=== PATIENT | male | born 1990 | race Caucasian/White ===

== ENCOUNTER 2018-04-08 11:41 | Inpatient (IN) | payer MEDICAID ==
[~2018-04-08] VITALS: Ht 172.7 cm; Wt 69.9 kg
[~2018-04-08 11:41] MED LIST: DIVA500T4 PO; QUET150T2
[2018-04-08] MEDS ORDERED: SODIUM CHLORIDE 0.9% 1,000 ML IVB ONE (11:49)
[2018-04-08] MEDS ORDERED: KETOROLAC TROMETH 30 MG/ML 1ML VIAL IV ONE (12:00)
[2018-04-08] MEDS ORDERED: MORPHINE SULFATE 4 MG/ML SYR/VIAL IV ONE (12:00)
[2018-04-08] MEDS ORDERED: ONDANSETRON HCL 4 MG/2 ML VIAL IV ONE (12:00)
[2018-04-08 13:11] LABS: Albumin 4.5 g/dL (3.4-5.0); BUN/Creatinine Ratio 22.2; Calcium 8.6 mg/dL (8.5-10.1); Potassium 3.9 mmol/L (3.5-5.1)
[2018-04-08 13:15] LABS: Bilirubin, Total 0.4 mg/dL (0.2-1.0); Total Protein 7.7 g/dL (6.4-8.2)
[2018-04-08 13:18] LABS: Basophils # (auto) 0.1 uL; Basophils % (auto) 0.9 % (0.0-2.0); Eosinophils # (auto) 0.2 uL; Eosinophils % (auto) 1.3 % (0.0-7.0); Hematocrit 40.7 % (41.0-53.0); Hemoglobin 14.2 g/dL (13.5-17.5); Lymphocytes # (auto) 3.1 uL; Lymphocytes % (auto) 23.6 % (10.0-50.0); Mean Corpuscular Hemoglobin 31.7 pg (28.0-32.0); Mean Corpuscular Volume 90.5 fL (80.0-100.0); Monocytes # (auto) 1.1 uL; Monocytes % (auto) 8.3 % (0.0-12.0); Neutrophils # (auto) 8.7 uL; Neutrophils % (auto) 65.9 % (37.0-80.0); Platelet Count (auto) 328 10^3/uL (140-450); White Blood Cell 13.2 10^3/uL (4.4-10.8)
[2018-04-08] MEDS ORDERED: ACETAMINOPHEN 325 MG TAB PO PRN (13:30)
[2018-04-08] MEDS ORDERED: cefTRIAXone 1GM/50ML D5W 50 ML IV ONE (13:30)
[2018-04-08] MEDS ORDERED: DOCUSATE SOD 100 MG CAP PO PRN (13:30)
[2018-04-08] MEDS ORDERED: TEMAZEPAM 15 MG CAP PO PRN (13:30)
[2018-04-08] MEDS ORDERED: ONDANSETRON HCL 4 MG/2 ML VIAL IV PRN (13:30)
[2018-04-08 14:10] LABS: Urine Bacteria FEW /hpf (None Seen); Urine Blood Negative /uL (Negative); Urine Mucus FEW (None Seen); Urine Specific Gravity 1.025 (1.001-1.035); Urine WBC 1 /hpf (0 - 3)
[2018-04-08 14:30] VITALS: BP 128/80
[2018-04-08] MEDS: SODIUM CHLORIDE 0.9% 1,000 ML IV SCH ×2 (15:09→20:18)
[2018-04-08] MEDS ORDERED: MANNITOL FTV 25% 12.5 GM/50 ML 50 ML IV ONE (16:30)
[2018-04-08] MEDS: MORPHINE SULFATE 4 MG/ML SYR/VIAL IV PRN ×2 (16:35→21:19)
[2018-04-08] MEDS ORDERED: INFLUENZA QUAD 2018-2019 0.5 ML SYRG IM ONE (17:00)
[2018-04-08 17:20] VITALS: BP 125/76
[2018-04-08] MEDS: HYDROcodone-ACET 5/325MG TAB PO PRN (18:12)
[2018-04-08] MEDS: FAMOTIDINE 20 MG TAB PO SCH (21:19)
[2018-04-08 22:00] VITALS: BP 139/67
[2018-04-09] MEDS: HYDROcodone-ACET 5/325MG TAB PO PRN ×4 (03:01→18:30)
[2018-04-09] MEDS: SODIUM CHLORIDE 0.9% 1,000 ML IV SCH ×4 (03:02→21:37)
[2018-04-09 05:00] VITALS: BP 122/72
[2018-04-09] MEDS: MORPHINE SULFATE 4 MG/ML SYR/VIAL IV PRN ×5 (05:15→21:36)
[2018-04-09 06:09] LABS: Basophils # (auto) 0.1 uL; Basophils % (auto) 0.7 % (0.0-2.0); Eosinophils # (auto) 0.2 uL; Eosinophils % (auto) 2.4 % (0.0-7.0); Hematocrit 37.5 % (41.0-53.0); Hemoglobin 13.2 g/dL (13.5-17.5); Lymphocytes # (auto) 1.9 uL; Lymphocytes % (auto) 24.3 % (10.0-50.0); Mean Corpuscular Hemoglobin 32.5 pg (28.0-32.0); Mean Corpuscular Hgb Conc. 35.3 g/dL (32.0-36.0); Monocytes # (auto) 0.7 uL; Neutrophils # (auto) 4.9 uL; Neutrophils % (auto) 63.6 % (37.0-80.0); Nucleated Red Blood Cells % 0.1 %; Platelet Count (auto) 257 10^3/uL (140-450); Red Blood Cells 4.07 10^6/uL (4.5-5.90); White Blood Cell 7.7 10^3/uL (4.4-10.8)
[2018-04-09 06:24] LABS: Albumin 3.7 g/dL (3.4-5.0); BUN/Creatinine Ratio 18.1
[2018-04-09 06:25] LABS: Bilirubin, Total 0.7 mg/dL (0.2-1.0); Total Protein 6.5 g/dL (6.4-8.2)
[2018-04-09] MEDS: MULTIPLE VITAMIN TAB PO SCH (08:27)
[2018-04-09] MEDS: FAMOTIDINE 20 MG TAB PO SCH ×2 (08:27→21:36)
[2018-04-09] MEDS: cefTRIAXone 1GM/50ML D5W 50 ML IV SCH (08:27)
[2018-04-09 08:30] VITALS: BP 152/94
[2018-04-09 12:30] VITALS: BP 127/75
[2018-04-09 15:13] VITALS: BP 127/75
[2018-04-09 16:31] VITALS: BP 138/73
[2018-04-09] MEDS: TAMSULOSIN HYDROCHLORIDE 0.4 MG CAP PO SCH (17:10)
[2018-04-09] MEDS: QUEtiapine FUMARATE 100 MG TAB PO SCH (21:37)
[2018-04-09 22:14] VITALS: BP 132/76
[2018-04-10] MEDS: HYDROcodone-ACET 5/325MG TAB PO PRN ×4 (01:07→14:23)
[2018-04-10] MEDS: MORPHINE SULFATE 4 MG/ML SYR/VIAL IV PRN ×5 (02:36→21:17)
[2018-04-10] MEDS: SODIUM CHLORIDE 0.9% 1,000 ML IV SCH ×3 (05:16→19:10)
[2018-04-10 05:28] VITALS: BP 125/71
[2018-04-10 06:27] LABS: BUN/Creatinine Ratio 9.8; Calcium 8.6 mg/dL (8.5-10.1); Potassium 3.8 mmol/L (3.5-5.1)
[2018-04-10] MEDS: MULTIPLE VITAMIN TAB PO SCH (09:27)
[2018-04-10] MEDS: cefTRIAXone 1GM/50ML D5W 50 ML IV SCH (09:27)
[2018-04-10] MEDS: FAMOTIDINE 20 MG TAB PO SCH ×2 (09:28→21:17)
[2018-04-10 09:32] VITALS: BP 132/83
[2018-04-10 13:23] VITALS: BP_SYST 132; BP_SYST 145; BP_DIAS 83; BP_DIAS 99
[2018-04-10] MEDS ORDERED: NICOTINE 21MG/24 HR TOPICAL PATCH TD ONE (14:00)
[2018-04-10] MEDS ORDERED: NAPROXEN 500 MG TAB PO ONE (14:00)
[2018-04-10] MEDS ORDERED: MANNITOL FTV 25% 12.5 GM/50 ML 50 ML IV ONE (14:30)
[2018-04-10] MEDS ORDERED: KETOROLAC TROMETH 30 MG/ML 1ML VIAL IV PRN (16:00)
[2018-04-10 17:04] VITALS: BP 131/93
[2018-04-10] MEDS: TAMSULOSIN HYDROCHLORIDE 0.4 MG CAP PO SCH (18:04)
[2018-04-10 21:23] VITALS: BP 125/82
[2018-04-10] MEDS: QUEtiapine FUMARATE 100 MG TAB PO SCH (21:52)
[2018-04-10] MEDS: NAPROXEN 500 MG TAB PO SCH (21:54)
[2018-04-11] MEDS: SODIUM CHLORIDE 0.9% 1,000 ML IV SCH ×4 (01:20→23:47)
[2018-04-11] MEDS: MORPHINE SULFATE 4 MG/ML SYR/VIAL IV PRN ×5 (02:41→21:30)
[2018-04-11 05:21] VITALS: BP 129/89
[2018-04-11 09:00] VITALS: BP 147/85
[2018-04-11] MEDS: cefTRIAXone 1GM/50ML D5W 50 ML IV SCH (10:20)
[2018-04-11] MEDS: FAMOTIDINE 20 MG TAB PO SCH ×2 (10:24→21:30)
[2018-04-11] MEDS: MULTIPLE VITAMIN TAB PO SCH (10:24)
[2018-04-11] MEDS: NAPROXEN 500 MG TAB PO SCH ×2 (10:25→22:23)
[2018-04-11] MEDS: NICOTINE 21MG/24 HR TOPICAL PATCH TD SCH (10:26)
[2018-04-11 13:00] VITALS: BP 138/83
[2018-04-11 17:00] VITALS: BP 149/104
[2018-04-11] MEDS: TAMSULOSIN HYDROCHLORIDE 0.4 MG CAP PO SCH (17:27)
[2018-04-11] MEDS: QUEtiapine FUMARATE 100 MG TAB PO SCH (21:31)
[2018-04-11 22:23] VITALS: BP 147/99
[2018-04-12] MEDS: MORPHINE SULFATE 4 MG/ML SYR/VIAL IV PRN ×3 (03:41→13:14)
[2018-04-12 05:35] VITALS: BP 140/84
[2018-04-12 06:43] LABS: Basophils # (auto) 0.1 uL; Eosinophils # (auto) 0.1 uL; Eosinophils % (auto) 0.8 % (0.0-7.0); Hematocrit 42.9 % (41.0-53.0); Hemoglobin 14.7 g/dL (13.5-17.5); Lymphocytes # (auto) 2.3 uL; Lymphocytes % (auto) 26.7 % (10.0-50.0); Mean Corpuscular Hemoglobin 31.2 pg (28.0-32.0); Mean Corpuscular Hgb Conc. 34.3 g/dL (32.0-36.0); Mean Corpuscular Volume 90.8 fL (80.0-100.0); Monocytes # (auto) 0.9 uL; Monocytes % (auto) 9.9 % (0.0-12.0); Neutrophils # (auto) 5.4 uL; Neutrophils % (auto) 61.6 % (37.0-80.0); Nucleated Red Blood Cells % 0.1 %; Platelet Count (auto) 327 10^3/uL (140-450); Red Blood Cells 4.73 10^6/uL (4.5-5.90); Red Cell Distribution Width 13.1 % (11.8-14.3); White Blood Cell 8.7 10^3/uL (4.4-10.8)
[2018-04-12 07:29] LABS: Calcium 9.4 mg/dL (8.5-10.1); Potassium 3.7 mmol/L (3.5-5.1)
[2018-04-12 08:21] LABS: Partial Thromboplastin Time 27.5 sec (23.78-33.04); Prothrombin Time 10.7 sec (9.27-12.13)
[2018-04-12 09:00] VITALS: BP 143/91
[2018-04-12] MEDS: NAPROXEN 500 MG TAB PO SCH (09:32)
[2018-04-12] MEDS: FAMOTIDINE 20 MG TAB PO SCH (09:32)
[2018-04-12] MEDS: MULTIPLE VITAMIN TAB PO SCH (09:32)
[2018-04-12] MEDS: NICOTINE 21MG/24 HR TOPICAL PATCH TD SCH (09:33)
[2018-04-12] MEDS ORDERED: ceFAZolin 1GM/50ML 50 ML IV ONE (10:19)
[2018-04-12] MEDS ORDERED: fentaNYL CITRATE 100 MCG/2 ML VL ONE (10:33)
[2018-04-12] MEDS ORDERED: DEXAMETHASONE SOD PHOS 10MG/1ML VIAL INJ ONE (10:34)
[2018-04-12] MEDS ORDERED: MIDAZOLAM HCL 1MG/1ML-2 ML VIAL ONE (10:34)
[2018-04-12] MEDS ORDERED: PROPOFOL 10 MG/ML 20 ML IV ONE (10:35)
[2018-04-12] MEDS ORDERED: MEPERIDINE HCL (50 MG/ML) 1 ML VIAL ONE (10:37)
[2018-04-12] MEDS ORDERED: IOHEXOL 180 MG/ML 20ML VIAL IJ ONE (10:40)
[2018-04-12] MEDS ORDERED: IOHEXOL 300 MG/ML 100ML BOTTLE IJ ONE (10:40)
[2018-04-12] MEDS ORDERED: HYDROmorphone HCL 2 MG/ML VL IV PRN (11:00)
[2018-04-12] MEDS ORDERED: MIDAZOLAM HCL 1MG/1ML-2 ML VIAL IV PRN (11:00)
[2018-04-12] MEDS ORDERED: ePHEDrine SULFATE 50 MG/ML AMP IV PRN (11:00)
[2018-04-12] MEDS ORDERED: MORPHINE SULFATE 4 MG/ML SYR/VIAL IV PRN (11:00)
[2018-04-12] MEDS ORDERED: KETOROLAC TROMETH 30 MG/ML 1ML VIAL IV ONE (11:00)
[2018-04-12] MEDS ORDERED: LABETALOL HCL 5 MG/ML 4ML SYRINGE IV PRN (11:00)
[2018-04-12] MEDS ORDERED: ONDANSETRON HCL 4 MG/2 ML VIAL IV ONE (11:00)
[2018-04-12] MEDS ORDERED: MORPHINE SULFATE 4 MG/ML SYR/VIAL IV ONE (12:00)
[2018-04-12 13:00] VITALS: BP 131/92
[2018-04-12 17:00] VITALS: BP 131/92
== END 2018-04-12 18:00 | disposition home or self-care (01) | DRG 465 ==
LOC: ER 11:41 → EDBD 11:41 → WEST WING 11:42
PROVIDERS: ADMIT Internal Medicine; ATTEND Internal Medicine
PROC: 0TF6XZZ Fragmentation in Right Ureter, External Approach (ICD-10-PCS; principal; 2018-04-12 10:25)
DX: N13.2 Hydronephrosis with renal and ureteral calculous obstruction (principal); F20.9 Schizophrenia, unspecified; F17.210 Nicotine dependence, cigarettes, uncomplicated; I10 Essential (primary) hypertension; F32.9 Major depressive disorder, single episode, unspecified; Z82.49 Family history of ischemic heart disease and other diseases of the circulatory system; Z87.442 Personal history of urinary calculi
CPT/HCPCS: 36415; 74176; 80048; 80053; 81001; 85025; 85610; 85730; 87040; 87081; 87086; 94761; 96361; 96374; 96375; A6257; J0690; J0696; J1100; J1885; J2250; J2405; J2704; Q9965

== ENCOUNTER 2018-11-30 10:17 | Emergency (ER) | payer MEDICAID ==
[~2018-11-30] VITALS: Ht 172.7 cm; Wt 81.6 kg
[2018-11-30] MEDS ORDERED: SODIUM CHLORIDE 0.9% 1,000 ML IVB ONE (11:10)
[2018-11-30] MEDS ORDERED: ONDANSETRON HCL 4 MG/2 ML VIAL IV ONE (11:15)
[2018-11-30 11:43] LABS: Basophils # (auto) 0.1 uL; Basophils % (auto) 0.9 % (0.0-2.0); Eosinophils # (auto) 0 uL; Eosinophils % (auto) 0.5 % (0.0-7.0); Hematocrit 45.4 % (41.0-53.0); Hemoglobin 15.9 g/dL (13.5-17.5); Lymphocytes # (auto) 1.1 uL; Lymphocytes % (auto) 13.9 % (10.0-50.0); Mean Corpuscular Hemoglobin 31.5 pg (28.0-32.0); Mean Corpuscular Volume 89.9 fL (80.0-100.0); Monocytes # (auto) 0.7 uL; Monocytes % (auto) 8.9 % (0.0-12.0); Neutrophils # (auto) 6.2 uL; Neutrophils % (auto) 75.8 % (37.0-80.0); Nucleated Red Blood Cells % 0.1 %; Platelet Count (auto) 301 10^3/uL (140-450); Red Blood Cells 5.05 10^6/uL (4.5-5.90); Red Cell Distribution Width 13.6 % (11.8-14.3); White Blood Cell 8.2 10^3/uL (4.4-10.8)
[2018-11-30 11:55] VITALS: BP 164/93
[2018-11-30 12:00] LABS: Albumin 4.8 g/dL (3.4-5.0); Calcium 9.6 mg/dL (8.5-10.1)
[2018-11-30 12:04] LABS: Bilirubin, Total 0.6 mg/dL (0.2-1.0); Magnesium 2.6 mg/dL (1.6-2.6); Total Protein 9.4 g/dL (6.4-8.2)
[2018-11-30 12:07] LABS: Urine Bacteria NONE SEEN /hpf (None Seen); Urine Blood Negative /uL (Negative); Urine Specific Gravity 1.011 (1.001-1.035); Urine WBC <1 /hpf (0 - 3)
[2018-11-30 12:07] LABS: Blood Alcohol < 3.0 mg/dL (0-5)
[2018-11-30 12:08] LABS: Salicylate 1.7 mg/dL (2.8-20.0)
[2018-11-30 12:09] LABS: Acetaminophen < 2.0 ug/mL (10-30)
[2018-11-30 12:15] LABS: Alcohol, Urine < 3.0 mg/dL (0-5); Amphetamine Screen, Urine NEGATIVE (NEGATIVE); Barbiturate Scree,Urine NEGATIVE (NEGATIVE); Benzodiazephine Screen, Urine NEGATIVE (NEGATIVE); Cannabinoid Screen, Urine POSITIVE (NEGATIVE); Cocaine Screen, Urine NEGATIVE (NEGATIVE); Opiate Scree,Urine NEGATIVE (NEGATIVE); Phencyclidine Screen, Urine NEGATIVE (NEGATIVE)
[2018-11-30 12:30] LABS: BUN/Creatinine Ratio 10.3
== END 2018-11-30 15:03 | disposition left against medical advice (07) ==
LOC: ER 10:17 → EDUNIT# 10:17 → EDBD 10:17 → ER 15:03
DX: F32.9 Major depressive disorder, single episode, unspecified (principal); R45.851 Suicidal ideations; F41.9 Anxiety disorder, unspecified; F14.10 Cocaine abuse, uncomplicated; F17.210 Nicotine dependence, cigarettes, uncomplicated; F20.9 Schizophrenia, unspecified; I10 Essential (primary) hypertension; R79.89 Other specified abnormal findings of blood chemistry; F12.10 Cannabis abuse, uncomplicated; Z59.0 Homelessness; Z87.442 Personal history of urinary calculi
CPT/HCPCS: 36415; 71045; 80053; 80307; 80320; 80329; 81001; 83735; 85025; 94761; 96374; 99284; J2405

== ENCOUNTER 2019-01-25 11:46 | Emergency (ER) | payer MEDICAID ==
[~2019-01-25] VITALS: Ht 172.7 cm; Wt 77.1 kg
[2019-01-25] MEDS ORDERED: SODIUM CHLORIDE 0.9% 1,000 ML IV ONE ×2 (12:09)
[2019-01-25] MEDS ORDERED: TAMSULOSIN HYDROCHLORIDE 0.4 MG CAP PO ONE ×2 (12:15)
[2019-01-25] MEDS ORDERED: KETOROLAC TROMETH 15 mg/ml 1ML VL IV ONE ×2 (12:15)
[2019-01-25] MEDS ORDERED: ONDANSETRON HCL 4 MG/2 ML VIAL IV ONE ×2 (12:15)
[2019-01-25] MEDS ORDERED: KETOROLAC TROMETH 30 MG/ML 1ML VIAL ONE (12:16)
[2019-01-25 12:34] LABS: Urine WBC None Seen /hpf (0 - 3)
[2019-01-25 12:36] LABS: Basophils # (auto) 0.1 uL; Eosinophils # (auto) 0 uL; Monocytes # (auto) 1.4 uL; Neutrophils # (auto) 10.3 uL; Nucleated Red Blood Cells % 0.1 %
[2019-01-25 12:37] LABS: Eosinophils % (auto) 0.1 % (0.0-7.0); Hematocrit 54.2 % (41.0-53.0); Hemoglobin 18.3 g/dL (13.5-17.5); Lymphocytes # (auto) 3.2 uL; Lymphocytes % (auto) 21.6 % (10.0-50.0); Mean Corpuscular Hemoglobin 30.5 pg (28.0-32.0); Mean Corpuscular Hgb Conc. 33.8 g/dL (32.0-36.0); Mean Corpuscular Volume 90.2 fL (80.0-100.0); Neutrophils % (auto) 68.3 % (37.0-80.0); Platelet Count (auto) 450 10^3/uL (140-450); Red Blood Cells 6.01 10^6/uL (4.5-5.90); Red Cell Distribution Width 13.6 % (11.8-14.3); White Blood Cell 15.1 10^3/uL (4.4-10.8)
[2019-01-25 12:46] LABS: Urine Bacteria NONE SEEN /hpf (None Seen); Urine Blood Negative /uL (Negative); Urine Specific Gravity 1.001 (1.001-1.035)
[2019-01-25 12:58] LABS: Albumin 5.4 g/dL (3.4-5.0); BUN/Creatinine Ratio 9.1; Calcium 10.7 mg/dL (8.5-10.1); Potassium 3.5 mmol/L (3.5-5.1)
[2019-01-25 13:01] LABS: Bilirubin, Total 1.4 mg/dL (0.2-1.0); Total Protein 9.9 g/dL (6.4-8.2)
[2019-01-25 13:05] VITALS: BP 126/78
[2019-01-25] MEDS ORDERED: MORPHINE SULFATE 4 MG/ML SYR/VIAL IV ONE (15:00)
== END 2019-01-25 15:29 | disposition home or self-care (01) ==
LOC: ER 11:46 → EDBD 11:46 → ER 15:22
DX: N20.0 Calculus of kidney (principal); F17.210 Nicotine dependence, cigarettes, uncomplicated; F12.10 Cannabis abuse, uncomplicated
CPT/HCPCS: 36415; 74176; 80053; 81001; 85025; 96361; 96374; 96375; 99284; J1885; J2270; J2405; J7030

== ENCOUNTER 2019-04-22 09:50 | Emergency (ER) | payer MEDICAID ==
[~2019-04-22] VITALS: Ht 167.6 cm; Wt 77.1 kg
[2019-04-22] MEDS ORDERED: KETOROLAC TROMETH 30 MG/ML 1ML VIAL IV ONE (10:15)
[2019-04-22] MEDS ORDERED: ONDANSETRON HCL 4 MG/2 ML VIAL IV ONE (10:15)
[2019-04-22 10:28] LABS: Urine Bacteria NONE SEEN /hpf (None Seen); Urine Blood Negative /uL (Negative); Urine Mucus FEW (None Seen); Urine Specific Gravity 1.005 (1.001-1.035); Urine WBC 1 /hpf (0 - 3)
[2019-04-22 10:29] VITALS: BP 155/86
[2019-04-22 10:35] LABS: Basophils # (auto) 0 uL; Basophils % (auto) 0.7 % (0.0-2.0); Eosinophils # (auto) 0 uL; Eosinophils % (auto) 0.7 % (0.0-7.0); Hematocrit 44.5 % (41.0-53.0); Hemoglobin 15.5 g/dL (13.5-17.5); Lymphocytes % (auto) 30.1 % (10.0-50.0); Mean Corpuscular Hemoglobin 31.8 pg (28.0-32.0); Mean Corpuscular Hgb Conc. 34.8 g/dL (32.0-36.0); Mean Corpuscular Volume 91.4 fL (80.0-100.0); Monocytes # (auto) 0.7 uL; Monocytes % (auto) 10.3 % (0.0-12.0); Neutrophils # (auto) 3.9 uL; Neutrophils % (auto) 58.2 % (37.0-80.0); Nucleated Red Blood Cells % 0.1 %; Platelet Count (auto) 346 10^3/uL (140-450); Red Blood Cells 4.87 10^6/uL (4.5-5.90); Red Cell Distribution Width 13.5 % (11.8-14.3); White Blood Cell 6.6 10^3/uL (4.4-10.8)
[2019-04-22 10:56] LABS: Albumin 4.7 g/dL (3.4-5.0); Calcium 9.2 mg/dL (8.5-10.1); Potassium 3.7 mmol/L (3.5-5.1)
[2019-04-22 10:59] LABS: Bilirubin, Total 0.5 mg/dL (0.2-1.0); Total Protein 8.5 g/dL (6.4-8.2)
[2019-04-22] MEDS ORDERED: SODIUM CHLORIDE 0.9% 1,000 ML IV ONE ×2 (11:05)
== END 2019-04-22 12:19 | disposition home or self-care (01) ==
LOC: EDBD 09:50 → ER 09:50
DX: N20.0 Calculus of kidney (principal); E86.0 Dehydration; R19.7 Diarrhea, unspecified
CPT/HCPCS: 36415; 74176; 80053; 81001; 85025; 96361; 96374; 96375; 99284; J1885; J2405

== ENCOUNTER 2019-07-21 16:46 | Emergency (ER) | payer MEDICAID ==
[~2019-07-21] VITALS: Ht 172.7 cm; Wt 74.8 kg
[2019-07-21 17:24] LABS: Basophils # (auto) 0.1 uL; Basophils % (auto) 0.6 % (0.0-2.0); Eosinophils # (auto) 0 uL; Eosinophils % (auto) 0.2 % (0.0-7.0); Hematocrit 50.2 % (41.0-53.0); Hemoglobin 17.6 g/dL (13.5-17.5); Lymphocytes % (auto) 19.5 % (10.0-50.0); Mean Corpuscular Volume 91.4 fL (80.0-100.0); Monocytes # (auto) 0.9 uL; Monocytes % (auto) 9.2 % (0.0-12.0); Neutrophils # (auto) 7.3 uL; Neutrophils % (auto) 70.5 % (37.0-80.0); Platelet Count (auto) 363 10^3/uL (140-450); Red Blood Cells 5.49 10^6/uL (4.5-5.90); Red Cell Distribution Width 13.5 % (11.8-14.3); White Blood Cell 10.3 10^3/uL (4.4-10.8)
[2019-07-21 17:38] LABS: Albumin 5.2 g/dL (3.4-5.0); Calcium 9.4 mg/dL (8.5-10.1); Potassium 3.7 mmol/L (3.5-5.1)
[2019-07-21 17:41] LABS: BUN/Creatinine Ratio 10.7; Bilirubin, Total 0.6 mg/dL (0.2-1.0)
[2019-07-21] MEDS ORDERED: KETOROLAC TROMETH 30 MG/ML 1ML VIAL IV ONE (19:15)
[2019-07-21] MEDS ORDERED: ONDANSETRON HCL 4 MG/2 ML VIAL IV ONE (19:15)
[2019-07-21] MEDS ORDERED: SODIUM CHLORIDE 0.9% 2,000 ML IV ONE (19:15)
[2019-07-21 19:31] LABS: Urine Bacteria NONE SEEN /hpf (None Seen); Urine Blood Negative /uL (Negative); Urine Mucus FEW (None Seen); Urine Specific Gravity 1.013 (1.001-1.035); Urine WBC 1 /hpf (0 - 3)
[2019-07-21] MEDS ORDERED: KETOROLAC TROMETH 60MG/2ML VIAL ONE (21:50)
[2019-07-21 22:00] VITALS: BP 153/90
== END 2019-07-21 22:34 | disposition home or self-care (01) ==
LOC: EDBD 16:46 → ER 16:47
DX: N20.0 Calculus of kidney (principal); I10 Essential (primary) hypertension
CPT/HCPCS: 36415; 74176; 80053; 80320; 81001; 85025; 96374; 96375; 99284; J1885; J2405; J7030

== ENCOUNTER 2020-07-16 09:40 | Emergency (ER) | payer MEDICAID ==
[~2020-07-16] VITALS: Ht 170.2 cm; Wt 77.1 kg
[2020-07-16 10:36] LABS: Basophils # (auto) 0.1 10 ^3/uL (0-0.2); Basophils % (auto) 1.1 % (0.0-2.0); Eosinophils # (auto) 0.1 10 ^3/uL (0-0.8); Eosinophils % (auto) 0.8 % (0.0-7.0); Hemoglobin 16.1 g/dL (13.5-17.5); Lymphocytes # (auto) 2.3 10 ^3/uL (0.4-5.4); Lymphocytes % (auto) 25.4 % (10.0-50.0); Mean Corpuscular Hemoglobin 31.7 pg (28.0-32.0); Mean Corpuscular Volume 90.4 fL (80.0-100.0); Monocytes # (auto) 0.9 10 ^3/uL (0-1.3); Monocytes % (auto) 9.8 % (0.0-12.0); Neutrophils # (auto) 5.7 10 ^3/uL (1.6-8.6); Neutrophils % (auto) 62.9 % (37.0-80.0); Platelet Count (auto) 363 10^3/uL (140-450); Red Blood Cells 5.09 10^6/uL (4.5-5.90); Red Cell Distribution Width 13.6 % (11.8-14.3); White Blood Cell 9.1 10^3/uL (4.4-10.8)
[2020-07-16 10:51] LABS: Potassium 4.2 mmol/L (3.5-5.1)
[2020-07-16 10:52] LABS: Albumin 4.7 g/dL (3.4-5.0); Calcium 9.3 mg/dL (8.5-10.1)
[2020-07-16 10:54] LABS: BUN/Creatinine Ratio 19.4; Bilirubin, Total 0.7 mg/dL (0.2-1.0); Total Protein 8.7 g/dL (6.4-8.2)
[2020-07-16 11:20] LABS: Amphetamine Screen, Urine NEGATIVE (NEGATIVE); Barbiturate Scree,Urine NEGATIVE (NEGATIVE); Benzodiazephine Screen, Urine NEGATIVE (NEGATIVE); Cocaine Screen, Urine NEGATIVE (NEGATIVE); Phencyclidine Screen, Urine NEGATIVE (NEGATIVE)
[2020-07-16 11:27] LABS: Cannabinoid Screen, Urine POSITIVE (NEGATIVE); Opiate Scree,Urine NEGATIVE (NEGATIVE)
[2020-07-16] MEDS ORDERED: ACETAMINOPHEN 325 MG TAB PO ONE (18:00)
[2020-07-17] MEDS ORDERED: ACETAMINOPHEN 500 MG TAB PO ONE ×2 (03:01→03:15)
[2020-07-17] MEDS ORDERED: OLANZapine 5 MG TAB PO ONE (03:15)
[2020-07-17] MEDS: LORazepam 0.5 MG TAB PO PRN ×2 (03:49→19:04)
[2020-07-17] MEDS: OLANZapine 5 MG TAB PO SCH ×2 (10:07→22:47)
[2020-07-18] MEDS: OLANZapine 5 MG TAB PO SCH (09:51)
[2020-07-18] MEDS: LORazepam 0.5 MG TAB PO PRN (09:51)
[2020-07-18] MEDS ORDERED: NICOTINE 14 MG/24HR TOPICAL PATCH TD ONE (12:15)
[2020-07-18 16:32] VITALS: BP 155/98
== END 2020-07-18 16:51 | disposition short-term general hospital (02) ==
LOC: ER 09:40
DX: R45.851 Suicidal ideations (principal); F41.9 Anxiety disorder, unspecified; F32.9 Major depressive disorder, single episode, unspecified; I10 Essential (primary) hypertension; F12.10 Cannabis abuse, uncomplicated; F15.10 Other stimulant abuse, uncomplicated; Z87.442 Personal history of urinary calculi; Z87.891 Personal history of nicotine dependence; Z20.822 Contact with and (suspected) exposure to COVID-19
CPT/HCPCS: 36415; 74176; 80053; 80307; 80320; 85025; 87426

== ENCOUNTER 2020-10-04 09:36 | Emergency (ER) | payer MEDICAID ==
[~2020-10-04] VITALS: Ht 177.8 cm; Wt 83.9 kg
[2020-10-04] MEDS ORDERED: SODIUM CHLORIDE 0.9% 1,000 ML IV ONE ×2 (09:45)
[2020-10-04 10:19] LABS: Basophils # (auto) 0 10 ^3/uL (0-0.2); Basophils % (auto) 0.2 % (0.0-2.0); Eosinophils # (auto) 0.1 10 ^3/uL (0-0.8); Eosinophils % (auto) 0.6 % (0.0-7.0); Hematocrit 42.6 % (41.0-53.0); Hemoglobin 15.1 g/dL (13.5-17.5); Lymphocytes # (auto) 1.2 10 ^3/uL (0.4-5.4); Lymphocytes % (auto) 13.1 % (10.0-50.0); Mean Corpuscular Hemoglobin 31.5 pg (28.0-32.0); Mean Corpuscular Hgb Conc. 35.4 g/dL (32.0-36.0); Mean Corpuscular Volume 88.8 fL (80.0-100.0); Monocytes % (auto) 11.7 % (0.0-12.0); Neutrophils # (auto) 6.6 10 ^3/uL (1.6-8.6); Neutrophils % (auto) 74.4 % (37.0-80.0); Nucleated Red Blood Cells % 0.2 %; Platelet Count (auto) 331 10^3/uL (140-450); Red Cell Distribution Width 12.8 % (11.8-14.3); White Blood Cell 8.8 10^3/uL (4.4-10.8)
[2020-10-04 10:41] LABS: Albumin 4.6 g/dL (3.4-5.0); Anion Gap 10 (5-15); Blood Alcohol < 3.0 mg/dL (0-5); Blood Urea Nitrogen 12 mg/dL (7-18); Calcium 10.6 mg/dL (8.5-10.1); Carbon Dioxide 25 mmol/L (21-32); Chloride 97 mmol/L (98-107); Glucose 106 mg/dL (74-106); Potassium 3.7 mmol/L (3.5-5.1); Sodium 132 mmol/L (136-145)
[2020-10-04 10:46] LABS: Alanine Aminotransferase 38 U/L (16-61); Alkaline Phosphatase 102 U/L (45-117); Aspartate Aminotransferase 53 U/L (15-37); BUN/Creatinine Ratio 14.5; GFR African American 139 mL/min; GFR Non-African American 115 mL/min; Total Protein 9.2 g/dL (6.4-8.2)
[2020-10-04 11:55] LABS: Urine Bacteria NONE SEEN /hpf (None Seen); Urine Blood 1+ /uL (Negative); Urine Mucus FEW (None Seen); Urine Specific Gravity 1.016 (1.001-1.035); Urine WBC 8 /hpf (0 - 3)
[2020-10-04 12:48] LABS: Alcohol, Urine < 3.0 mg/dL (0-10); Amphetamine Screen, Urine POSITIVE (NEGATIVE); Barbiturate Scree,Urine NEGATIVE (NEGATIVE); Benzodiazephine Screen, Urine NEGATIVE (NEGATIVE); Cannabinoid Screen, Urine POSITIVE (NEGATIVE); Cocaine Screen, Urine NEGATIVE (NEGATIVE); Opiate Scree,Urine POSITIVE (NEGATIVE); Phencyclidine Screen, Urine NEGATIVE (NEGATIVE)
[2020-10-04 14:09] VITALS: BP 135/75
== END 2020-10-04 14:10 | disposition home or self-care (01) ==
LOC: ER 09:36 → EDBD 09:36 → ER 14:10
DX: F41.9 Anxiety disorder, unspecified (principal); N39.0 Urinary tract infection, site not specified; R07.9 Chest pain, unspecified; F15.10 Other stimulant abuse, uncomplicated; I10 Essential (primary) hypertension; F32.9 Major depressive disorder, single episode, unspecified; F12.10 Cannabis abuse, uncomplicated; Z87.891 Personal history of nicotine dependence; Z87.442 Personal history of urinary calculi
CPT/HCPCS: 36415; 71045; 80053; 80307; 80320; 81001; 84484; 85025; 93005; 96360; 96361